=== PATIENT | female | born 2005 | race Caucasian/White ===

== ENCOUNTER 2023-10-18 12:00 | Day surgery (SDC) | payer BC, OTHER ==
[2023-10-18 12:29] VITALS: BMI 38.2
[2023-10-18] MEDS ORDERED: hydrALAZINE 20 MG/ML VIAL SLOW IVP PRN (12:59)
== END 2023-10-18 13:03 | disposition home or self-care (01) ==
LOC: CSHLD/OP 12:00
PROVIDERS: ATTEND Family Medicine
DX: O47.1 False labor at or after 37 completed weeks of gestation (principal); Z3A.38 38 weeks gestation of pregnancy; Z88.1 Allergy status to other antibiotic agents; Z79.899 Other long term (current) drug therapy
CPT/HCPCS: 99282

== ENCOUNTER 2024-09-29 05:21 | Day surgery (SDC) | payer OTHER, BC ==
[2024-09-29 05:35] VITALS: BMI 39.5
[2024-09-29 06:14] LABS: Bilirubin Neg (Negative); Blood, Urine 10 (Negative); Clarity Clear (Clear); Glucose, Urine (Dipstick) Normal (Negative); Ketone, Urine Negative (Negative); Leukocyte 25 (Negative); Nitrite Negative (Negative); Protein, Urine (Dipstick) 30 mg/dl (Neg-Trace); Specific Gravity, Urine 1.015 (1.005-1.030); Urobilinogen Normal mg/dL (Less than 2); pH, Urine 6.5 (5.0-9.0)
[2024-09-29] MEDS ORDERED: hydrALAZINE 20 MG/ML VIAL SLOW IVP PRN (06:15)
[2024-09-29 06:36] LABS: Bacteria/HPF 2+ HPF (None Seen); CAUTI Indications for Culture Pregnancy; RBC/HPF 0-3 HPF (0-3); Squamous Epithelial 0-3 HPF (0-3); WBC/HPF 0-3 HPF (0-3)
[2024-09-29 06:37] LABS: Urine Culture Reflex Yes Yes
== END 2024-09-29 06:07 | disposition home or self-care (01) ==
LOC: CSHLD/OP 05:21
PROVIDERS: ATTEND Family Medicine
DX: O47.03 False labor before 37 completed weeks of gestation, third trimester (principal); O23.43 Unspecified infection of urinary tract in pregnancy, third trimester; O23.593 Infection of other part of genital tract in pregnancy, third trimester; N89.8 Other specified noninflammatory disorders of vagina; Z3A.35 35 weeks gestation of pregnancy; Z88.0 Allergy status to penicillin; Z79.899 Other long term (current) drug therapy
CPT/HCPCS: 81001; 87077; 87086; 87186; 87480; 87510; 87660; 99283

== ENCOUNTER 2024-10-21 14:51 | Inpatient (IN) | payer OTHER ==
[2024-10-21] MEDS ORDERED: fentaNYL 50 mcg/mL 1 mL Vial SLOW IVP PRN (15:15)
[2024-10-21] MEDS ORDERED: Ondansetron PF 4 MG/2 ML Vial IVP PRN ×2 (15:15→18:51)
[2024-10-21] MEDS ORDERED: HYDROcodone/Acetaminophen 5/325 mg Tablet PO PRN (15:15)
[2024-10-21] MEDS ORDERED: Lidocaine 1% (PF) 30 ML VIAL SC PRN (15:15)
[2024-10-21] MEDS ORDERED: Diphenoxylate HCl/Atropine Tablet PO PRN (15:15)
[2024-10-21] MEDS ORDERED: Oxytocin 30 units/NS 500 ML 500 ML IV SCH ×2 (15:15)
[2024-10-21] MEDS ORDERED: Carboprost 250 MCG/ML AMP IM PRN (15:15)
[2024-10-21] MEDS ORDERED: Tranexamic Acid 1,000 MG/10 ML VIAL IVP PRN (15:15)
[2024-10-21] MEDS ORDERED: hydrALAZINE 20 MG/ML VIAL SLOW IVP PRN (15:15)
[2024-10-21] MEDS ORDERED: Promethazine HCl 25 MG/ML VIAL IM PRN ×2 (15:15→18:51)
[2024-10-21 15:34] VITALS: BMI 40.1
[2024-10-21 16:25] LABS: Hematocrit 30.6 % (34.9-44.5); Hemoglobin 9.4 g/dL (12.0-15.5); Mean Corpuscular HGB CONC 30.7 g/dL (32.0-36.0); Mean Corpuscular Hemoglobin 24.7 pg (27.0-33.0); Mean Corpuscular Volume 80.3 fL (81.6-98.3); Mean Platelet Volume 11.1 fL (7.4-10.4); Platelet Count 200 10x3/uL (150-450); Red Blood Cell (RBC) Count 3.81 10x6/uL (3.90-5.03); White Blood Cell (WBC) Count 11.79 10x3/uL (3.5-10.5)
[2024-10-21] MEDS: CEFAZOLIN 2 GM in Sodium Chloride 0.9% 100 ML IVPB SCH (16:34)
[2024-10-21] MEDS: Lactated Ringer's 1,000 ML IV SCH (16:34)
[2024-10-21] MEDS: Oxytocin 30 units/NS 500 ML 500 ML IV SCH (16:35)
[2024-10-21 16:53] LABS: Syphilis Antibody Nonreactive (Nonreactive); Syphilis Antibody Index 0.04 S/CO (<1.00 Non-Reactive)
[2024-10-21 16:55] LABS: HBsAg Index 0.16 S/CO (0-0.99); Hep B Surf Ag - L&D Non-Reactive S/CO (NonReactive)
[2024-10-21] MEDS ORDERED: Naloxone HCl 0.4 mg/ml Vial IVP PRN ×2 (18:51)
[2024-10-21] MEDS ORDERED: diphenhydrAMINE 50 MG/ML VIAL IVP PRN (18:51)
[2024-10-21] MEDS ORDERED: Moisturizing Cream (Eucerin) 113 GM JAR TOP PRN (18:51)
[2024-10-21] MEDS ORDERED: Communication Order-Pharmacy FS SCH (19:00)
[2024-10-21] MEDS: Acetaminophen 500 MG TAB PO PRN (19:11)
[2024-10-21] MEDS: fentaNYL/Ropivacaine Epidural 100 ML ONE (19:12)
[2024-10-21] MEDS ORDERED: Lactated Ringer's 500 ML IV PRN (19:31)
[2024-10-21] MEDS: ePHEDrine Sulfate 50 MG/10 ML VIAL SLOW IVP PRN (20:32)
[2024-10-22] MEDS: fentaNYL 2 mcg/Ropivacaine 0.2% Epidural 100 ML CADD EPIDURAL SCH (07:40)
[2024-10-22] MEDS ORDERED: ePHEDrine Sulfate 50 MG/10 ML VIAL ONE (09:00)
[2024-10-22] MEDS ORDERED: Bupivacaine 0.25% HCL 30 ML VIAL ONE (09:00)
[2024-10-22] MEDS: Misoprostol 200 MCG TAB PR PRN (09:06)
[2024-10-22] MEDS: Ibuprofen 800 MG TAB PO PRN (10:21)
[2024-10-22] MEDS: Methylergonovine 0.2 MG/ML VIAL IM PRN (11:12)
[2024-10-22] MEDS ORDERED: Bisacodyl 10 MG SUPP PR PRN (14:11)
[2024-10-22] MEDS ORDERED: Lanolin Ointment 7 GM TUBE TOP PRN (14:11)
[2024-10-22] MEDS ORDERED: diphenhydrAMINE 25 MG CAP PO PRN (14:11)
[2024-10-22] MEDS ORDERED: Benzocaine-Menthol 82.5 ML CAN TOP PRN (14:11)
[2024-10-22] MEDS ORDERED: Oxytocin 30 units/NS 500 ML 500 ML IV SCH (14:11)
[2024-10-22] MEDS ORDERED: Ondansetron PF 4 MG/2 ML Vial IVP PRN (14:11)
[2024-10-22] MEDS ORDERED: Milk Of Magnesia 30 ML UDCUP PO PRN (14:11)
[2024-10-22] MEDS ORDERED: hydrALAZINE 20 MG/ML VIAL SLOW IVP PRN (14:11)
[2024-10-22] MEDS ORDERED: Promethazine HCl 25 MG/ML VIAL IM PRN (14:11)
[2024-10-22] MEDS ORDERED: HYDROcodone/Acetaminophen 5/325 mg Tablet PO PRN (14:11)
[2024-10-22] MEDS: Acetaminophen 325 MG TAB PO PRN (14:21)
[2024-10-22] MEDS: CEFAZOLIN 2 GM VIAL ONE (18:48)
[2024-10-22] MEDS: Ferrous Sulfate 325 MG TAB PO SCH (18:49)
[2024-10-22] MEDS: Docusate 100 MG CAP PO SCH (21:53)
[2024-10-22] MEDS: Ibuprofen 800 MG TAB PO SCH ×2 (21:53→21:54)
[2024-10-23] MEDS: Boostrix 0.5 ML (Tdap) VIAL (>/=7 yrs of age) IM ONE (07:25)
[2024-10-23 08:03] VITALS: BP 109/62; TEMP 97.6
[2024-10-23] MEDS: Prenatal Vitamin 1 TAB PO SCH (08:30)
== END 2024-10-23 17:25 | disposition home or self-care (01) | DRG 807 ==
LOC: CSHLD/OP 14:51 → CSHLD 15:15 → CSHPP 10-22 13:06
PROVIDERS: ADMIT Family Medicine; ATTEND Family Medicine
PROC: 10E0XZZ Delivery of Products of Conception, External Approach (ICD-10-PCS; principal; 2024-10-22)
PROC: 10H07YZ Insertion of Other Device into Products of Conception, Via Natural or Artificial Opening (ICD-10-PCS; 2024-10-22)
PROC: 10H073Z Insertion of Monitoring Electrode into Products of Conception, Via Natural or Artificial Opening (ICD-10-PCS; 2024-10-22)
DX: O99.824 Streptococcus B carrier state complicating childbirth (principal); Z37.0 Single live birth; Z3A.39 39 weeks gestation of pregnancy; Z88.1 Allergy status to other antibiotic agents; O99.214 Obesity complicating childbirth; Z79.899 Other long term (current) drug therapy
CPT/HCPCS: 36415; 51702; 85027; 86780; 86850; 86900; 86901; 87340; 99285; J0665; J0690; J2210; J2590; J7120